=== PATIENT | female | born 1965 | race Caucasian/White ===

== ENCOUNTER → 2017-01-04 | Outpatient (CLI) | payer OTHER, BC ==
--- NOTE | 2017-01-04 09:33 | REPMRS ---
Patient History The patient states she had a clinical breast exam in 12/2016. Family history of pancreatic cancer in mother at age 64. Took hormonal contraceptives for 7 years. Digital Woman Screen Mammo: January 04, 2017 - Exam #: [id number] Bilateral CC and MLO view(s) were taken. Technologist: Alejandra Nuñez, Technologist Prior study comparison: December 14, 2015, digital woman screen mammo performed at [facility]. June 11, 2014, bilateral bilat screen digital mammo, performed at [facility] ([facility]). June 03, 2013, bilateral bilat screen digital mammo, performed at [facility] ([facility]). FINDINGS: There are scattered fibroglandular densities. There has been no change in the appearance of the mammogram from the prior studies. There is a mild amount of scattered fibroglandular density which is fairly symmetric. There is no interval development of dominant mass, architectural distortion, or clustered microcalcification suggestive of malignancy. ASSESSMENT: BI-RADS/ACR category 1 mammogram. Negative. Recommendation Routine screening mammogram in 1 year (for women over age 40). This mammogram was interpreted with the aid of an FDA-approved computer-aided dectection system. Electronically Signed By: Agus Beyer MD 01/04/17 0933
== END ==
LOC: M WHC 08:11
PROVIDERS: ATTEND Family Medicine
DX: Z12.31 Encounter for screening mammogram for malignant neoplasm of breast (principal)

== ENCOUNTER → 2017-01-04 | Outpatient (REF) | payer OTHER | LOC: M SFHCWAGY 08:46 | PROVIDERS: ATTEND Family Medicine | DX: Z12.4 Encounter for screening for malignant neoplasm of cervix (principal); R87.610 Atypical squamous cells of undetermined significance on cytologic smear of cervix (ASC-US) ==

== ENCOUNTER → 2017-06-11 | Outpatient (REF) | payer OTHER ==
[2017-06-11 11:29] LABS: BASO % 0.6 % (0.0-1.0); EOS # 0.1 K/mm3 (0.0-0.50); EOS % 1.5 % (0.0-3.0); LARGE UNSTAINED CELL # 0.1 K/mm3 (0.0-0.4); LARGE UNSTAINED CELL % 1.5 % (0.0-4.0); LYMPH # 1.6 K/mm3 (1.5-4.5); LYMPH % 27.1 % (24.0-44.0); MEAN CORPUSCULAR HEMOGLOBIN 31.4 pg (27.0-33.0); MEAN CORPUSCULAR HGB CONC 33.5 g/dl (32.0-36.5); MEAN CORPUSCULAR VOLUME 93.6 fl (80.0-96.0); MONO # 0.3 K/mm3 (0.0-0.8); MONO % 5.9 % (0.0-5.0); NEUTROPHILS # 3.5 K/mm3 (1.8-7.7); NEUTROPHILS % 63.3 % (36.0-66.0); PLATELET COUNT, AUTOMATED 226 k/mm3 (150-450); RED CELL DISTRIBUTION WIDTH 13.6 % (11.5-14.5); WHITE BLOOD COUNT 5.5 K/mm3 (4.0-10.0)
[2017-06-11 11:50] LABS: ALBUMIN 3.6 GM/DL (3.2-5.2); ALBUMIN/GLOBULIN RATIO 1.03 (1.00-1.93); ALKALINE PHOSPHATASE 72 U/L (45-117); ALT/SGPT 23 U/L (12-78); ANION GAP 8 MEQ/L (8-16); AST/SGOT 16 U/L (15-37); BILIRUBIN,TOTAL 0.4 MG/DL (0.2-1.0); BLOOD UREA NITROGEN 11 MG/DL (7-18); CALCIUM LEVEL 8.9 MG/DL (8.5-10.1); CARBON DIOXIDE LEVEL 27 MEQ/L (21-32); CHLORIDE LEVEL 106 MEQ/L (98-107); CHOLESTEROL LEVEL 237 MG/DL (<200); CREATININE FOR GFR 0.77 MG/DL (0.55-1.02); FREE T4 0.97 NG/DL (0.76-1.46); GLOMERULAR FILTRATION RATE > 60.0 (>51); GLUCOSE, FASTING 92 MG/DL (70-105); POTASSIUM SERUM 4.4 MEQ/L (3.5-5.1); SODIUM LEVEL 141 MEQ/L (136-145); TOTAL PROTEIN 7.1 GM/DL (6.4-8.2); TRIGLYCERIDES LEVEL 150 MG/DL (<150)
== END ==
LOC: M SFHCPLAZ 07:41
PROVIDERS: ATTEND Nurse Practitioner Family
DX: K21.9 Gastro-esophageal reflux disease without esophagitis (principal); F32.9 Major depressive disorder, single episode, unspecified; E78.5 Hyperlipidemia, unspecified

== ENCOUNTER → 2017-06-14 | Outpatient (CLI) | payer OTHER, BC ==
--- NOTE | 2017-06-14 14:06 | REP ---
ULTRASOUND LEFT UPPER ARM: Real-time sonographic evaluation of the left upper arm performed at the site of a reported palpable abnormality. There is a solid appearing nodule which measures 3.3 x 1.7 x 4.0 cm. It appears to be the same echogenicity as the subcutaneous fat. This most likely represents a lipoma. This could be confirmed with an MRI. Signed by Yossi Franklin MD 06/14/2017 05:23 P
== END ==
LOC: M RAD 12:54
PROVIDERS: ATTEND Nurse Practitioner Family
DX: R22.32 Localized swelling, mass and lump, left upper limb (principal)

== ENCOUNTER → 2018-04-18 | Outpatient (CLI) | payer OTHER | LOC: M WHC 09:04 | DX: Z12.31 Encounter for screening mammogram for malignant neoplasm of breast (principal) | CPT/HCPCS: 77067 ==

== ENCOUNTER → 2018-05-30 | Outpatient (REF) | payer OTHER | LOC: M SFHCWAGY 10:30 | DX: R87.619 Unspecified abnormal cytological findings in specimens from cervix uteri (principal) ==

== ENCOUNTER → 2018-11-14 | Outpatient (REF) | payer OTHER | LOC: M SFHCWAGY 10:10 | PROVIDERS: ATTEND Family Medicine | DX: N95.0 Postmenopausal bleeding (principal); N85.8 Other specified noninflammatory disorders of uterus ==

== ENCOUNTER → 2018-11-24 | Outpatient (REF) | payer OTHER ==
[2018-11-24 10:18] LABS: ALBUMIN 3.8 GM/DL (3.2-5.2); ALT/SGPT 23 U/L (12-78); BILIRUBIN,TOTAL 0.3 MG/DL (0.2-1.0); BLOOD UREA NITROGEN 13 MG/DL (7-18); CALCIUM LEVEL 8.6 MG/DL (8.5-10.1); CARBON DIOXIDE LEVEL 28 MEQ/L (21-32); CHLORIDE LEVEL 105 MEQ/L (98-107); CHOLESTEROL LEVEL 217 MG/DL (<200); CHOLESTEROL RISK RATIO 5.864 (<5); FREE T4 0.89 NG/DL (0.76-1.46); GLOMERULAR FILTRATION RATE > 60.0 (>51); GLUCOSE, FASTING 93 MG/DL (70-100); HDL CHOLESTEROL 37 MG/DL (>40); LDL CHOLESTEROL 157 MG/DL (<100); NON-HDL-C 180 MG/DL; POTASSIUM SERUM 4.4 MEQ/L (3.5-5.1); SODIUM LEVEL 139 MEQ/L (136-145); TOTAL PROTEIN 7.2 GM/DL (6.4-8.2); TRIGLYCERIDES LEVEL 113 MG/DL (<150)
[2018-11-24 10:19] LABS: TOTAL 25(OH) VITAMIN D 26.8 NG/ML (30.0-100.0)
== END ==
LOC: M SFHCPLAZ 07:58
PROVIDERS: ATTEND Nurse Practitioner Family
DX: E78.5 Hyperlipidemia, unspecified (principal); F34.1 Dysthymic disorder

== ENCOUNTER → 2019-06-26 | Outpatient (REF) | payer OTHER | LOC: M SFHCWAGY 09:03 | PROVIDERS: ATTEND Family Medicine | DX: Z12.4 Encounter for screening for malignant neoplasm of cervix (principal) ==

== ENCOUNTER → 2019-06-26 | Outpatient (CLI) | payer OTHER ==
--- NOTE | 2019-06-26 09:06 | REPMRS ---
Patient History The patient states she has not had a clinical breast exam in over a year. Family history of pancreatic cancer at age 64 in mother. Took hormonal contraceptives for 7 years. 3D TOMOSYNTHESIS WAS PERFORMED. [facility] lifetime risk for breast cancer is 9.9%. Digital Woman Screen Mammo: June 26, 2019 - Exam #: [id number] Bilateral CC and MLO view(s) were taken. Technologist: Alejandra Nuñez, Technologist Prior study comparison: April 18, 2018, bilateral digital woman screen mammo performed at [facility]. January 04, 2017, digital woman screen mammo performed at [facility]. FINDINGS: There are scattered fibroglandular densities. There has been no change in the appearance of the mammogram from the prior studies. There is a mild amount of residual fibroglandular tissue which is fairly symmetric. There is no interval development of dominant mass, architectural distortion, or clustered microcalcification suggestive of malignancy. Assessment: BI-RADS/ACR category 1 mammogram. Negative Mammogram. Recommendation Routine screening mammogram in 1 year (for women over age 40). This mammogram was interpreted with the aid of an FDA-approved computer-aided dectection system. Electronically Signed By: Yossi Franklin MD 06/26/19 0957
== END ==
LOC: M WHC 08:12
PROVIDERS: ATTEND Family Medicine
DX: Z12.31 Encounter for screening mammogram for malignant neoplasm of breast (principal); Z80.0 Family history of malignant neoplasm of digestive organs

== ENCOUNTER → 2019-06-26 | Outpatient (REF) | payer OTHER | LOC: M SFHCWAGY 11:53 | PROVIDERS: ATTEND Family Medicine | DX: Z12.4 Encounter for screening for malignant neoplasm of cervix (principal) ==

== ENCOUNTER → 2020-07-08 | Outpatient (CLI) | payer BC, OTHER ==
--- NOTE | 2020-07-08 15:00 | REPMRS ---
Patient History The patient states she had a clinical breast exam in June 2020. Family history of pancreatic cancer at age 64 in mother. Took hormonal contraceptives for 7 years. Digital Woman Screen Mammo: July 08, 2020 - Exam #: [id number] Bilateral CC and MLO view(s) were taken. Technologist: Gladys Leavitt, Technologist Prior study comparison: June 26, 2019, bilateral digital woman screen mammo performed at [facility]. April 18, 2018, bilateral digital woman screen mammo performed at [facility]. January 04, 2017, digital woman screen mammo performed at [facility]. FINDINGS: There are scattered fibroglandular densities. The Volpara volumetric breast density category is:B. There has been no change in the appearance of the mammogram from the prior studies. There is a mild amount of scattered fibroglandular density which is fairly symmetric. There is no interval development of dominant mass, architectural distortion, or grouped microcalcification suggestive of malignancy. 3-D tomosynthesis shows no additional findings. Assessment: BI-RADS/ACR category 1 mammogram. Negative Mammogram. Recommendation Routine screening mammogram of both breasts in 1 year (for women over age 40). This patient's Lifetime Breast Cancer Risk is estimated at 9.7 %. This mammogram was interpreted with the aid of an FDA-approved computer-aided dectection system. Electronically Signed By: Agus Beyer MD 07/08/20 [id number]
== END ==
LOC: M WHC 09:53
PROVIDERS: ATTEND Nurse Practitioner Women's Health
DX: Z12.31 Encounter for screening mammogram for malignant neoplasm of breast (principal); Z90.49 Acquired absence of other specified parts of digestive tract

== ENCOUNTER → 2021-07-21 | Outpatient (CLI) | payer BC ==
--- NOTE | 2021-07-24 13:10 | REPMRS ---
Patient History The patient states she has not had a clinical breast exam in over a year. Patient is postmenopausal. Family history of pancreatic cancer at age 64 in mother. Took hormonal contraceptives for 7 years. 10 lb unintentional weight gain. Pfizer vaccine 12/28/20 left arm. 01/18/21 left arm. Patient states no breast complaints today. Patient has signed MRS History Sheet. Digital Woman Screen Mammo: July 21, 2021 - Exam #: [id number] Bilateral CC and MLO view(s) were taken. Technologist: RT Gerardo Prior study comparison: July 08, 2020, bilateral digital woman screen mammo performed at [facility]. June 26, 2019, bilateral digital woman screen mammo performed at [facility]. April 18, 2018, bilateral digital woman screen mammo performed at [facility]. FINDINGS: There are scattered fibroglandular densities. The Volpara volumetric breast density category is:B. There has been no change in the appearance of the mammogram from the prior studies. There is a mild amount of scattered fibroglandular density which is fairly symmetric. There is no interval development of dominant mass, architectural distortion, or grouped microcalcification suggestive of malignancy. 3-D tomosynthesis shows no additional findings. Assessment: BI-RADS/ACR category 1 mammogram. Negative Mammogram. Recommendation Routine screening mammogram of both breasts in 1 year (for women over age 40). This patient's [facility] Lifetime Breast Cancer Risk is estimated at 11.3 %. This mammogram was interpreted with the aid of an FDA-approved computer-aided dectection system. Electronically Signed By: Agus Beyer MD 07/24/21 [id number]
== END ==
LOC: M WHC 09:24
PROVIDERS: ATTEND Nurse Practitioner Family
DX: Z12.31 Encounter for screening mammogram for malignant neoplasm of breast (principal); Z76.0 Encounter for issue of repeat prescription

== ENCOUNTER → 2021-11-21 | Outpatient (REF) | payer BC | LOC: M PLALAB 13:25 | PROVIDERS: ATTEND Obstetrics & Gynecology | DX: N95.0 Postmenopausal bleeding (principal) | CPT/HCPCS: 87624; 88304; G0123 ==

== ENCOUNTER → 2021-11-27 | Outpatient (CLI) | payer BC | LOC: M WHC 10:47 | PROVIDERS: ATTEND Obstetrics & Gynecology | DX: N95.0 Postmenopausal bleeding (principal) ==

== ENCOUNTER → 2022-06-27 | Outpatient (CLI) | payer BC | LOC: M WHC 06-19 08:40 | PROVIDERS: ATTEND Obstetrics & Gynecology | DX: D25.9 Leiomyoma of uterus, unspecified (principal) ==

== ENCOUNTER → 2022-09-25 | Outpatient (CLI) | payer BC | LOC: M WHC 13:49 | PROVIDERS: ATTEND Obstetrics & Gynecology | DX: Z12.31 Encounter for screening mammogram for malignant neoplasm of breast (principal) ==

== ENCOUNTER → 2023-11-28 | Outpatient (CLI) | payer BC | LOC: M WHC 09:29 | PROVIDERS: ATTEND Obstetrics & Gynecology | DX: Z12.31 Encounter for screening mammogram for malignant neoplasm of breast (principal) ==

== ENCOUNTER → 2024-12-08 | Outpatient (CLI) | payer BC | LOC: M WHC 09:32 | PROVIDERS: ATTEND Physician Assistant Medical | DX: Z12.31 Encounter for screening mammogram for malignant neoplasm of breast (principal); R92.313 Mammographic fatty tissue density, bilateral breasts ==